=== PATIENT | male | born 1950 | race Caucasian/White ===

== ENCOUNTER 2021-04-24 11:53 | Inpatient (IN) ==
--- NOTE | 2021-04-24 11:45 | Emergency Department Note ---
Impression & Plan STEMI (ST elevation myocardial infarction), HTN (hypertension), Diabetes type 2, controlled ED Provider Note Provider: Luis Dooley MD DATE OF SERVICE: 04/24/2021 CHIEF COMPLAINT: Chest pain, shortness of breath HISTORY OF PRESENT ILLNESS: Patient is a 70-year-old gentleman history of hyp ertension and type 2 diabetes presenting here today via ambulance from the [facility]. Patient was evidently seen there today reporting some indigestion and shoulder pain or shortness of breath for 3 days. Evidently symptoms have been intermittently since Thursday. Tried some Tylenol without improvement. Denies any fevers or chills or vomiting or diarrhea. Patient has noted some dyspnea with exertion. Denies any history of cardiac disease but does have a history of diabetes again. Patient was [facility] at [facility] and referred here with significant EKG findings. Made a heart alert prior to arrival. Patient did receive 1 nitroglycerin and 324mg of aspirin prior to arrival. Patient denies significant chest discomfort at this time upon arrival. Cardiac history and father reported. REVIEW OF SYSTEMS: A total of 10 review of systems was obtained and negative except as stated above in the HPI. PAST MEDICAL HISTORY: As noted above MEDICATIONS: Reviewed home medications includes insulin SOCIAL HISTORY: Non-smoker, lives at home PHYSICAL EXAM: GENERAL: alert and oriented in no acute distress on stretcher Head: normocephalic and atraumatic EYES: No injection, discharge or icterus. NECK: Trachea midline. ENT: Mucous membranes pink and moist. LUNGS: Airway patent. No retractions. Breath sounds clear with good air entry bilaterally. HEART: Regular rate and rhythm. No chest wall tenderness ABDOMEN: Soft and non-tender, without guarding or rebound SKIN: Acyanotic, warm, dry, without rashes EXTREMITIES: Without swelling, tenderness or deformity NEUROLOGICAL: No focal deficits. No aphasia. No facial droop or slurred speech. EK bpm sinus tachycardia with acute ST segment elevations V2 through V5 with some question of anterior V1 and V2 Q waves. No significant reciprocal depressions are noted. Compared to previous EKG from the [facility] system from July of this year these ST segment elevations on the anterior leads appears new. CONTINUOUS CARDIAC MONITORING: was ordered and showed a heart rate of 90s-100s bpm in normal sinus rhythm to sinus tachycardia Patient's laboratory studies and imaging reviewed. Differential includes Cardiac ischemia, aortic dissection, pulmonary embolism, pneumothorax, pneumonia, pericarditis, myocarditis, esophageal rupture, GERD, cholecystitis, pancreatitis, musculoskeletal, as well as other pathologies. IMPRESSION/MEDICAL DECISION MAKING: Alerted prior to arrival by EMS for concerning EKG. Patient's medical records in the [facility] system were utilized for comparison purposes. Patient with significant V2 through V5 ST segment elevation although there are not significant reciprocal depressions noted. Heart alert was called. Patient previously received 324mg of aspirin prior to arrival. Patient does have multiple cardiac risk factors. Basic labs and Covid testing were ordered. See ms unlikely to be acute aortic dissection. Given EKG changes and the patient's pain resolved question if we are a bit late and catching a STEMI. 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 Patient's troponin does later returned significantly elevated but again I question that he had his initial NH event over the last several days. Covid screen was negative and is not severely anemic at this time. Will defer any further antiplatelet or heparinization to the the cardiology team. DIAGNOSIS: STEMI, chest pain DISPOSITION: Taken to the cardiac catheterization lab for further care Critical Care I have personally spent 31 minutes of critical care time in the direct management of this patient. This includes bedside care, interpretation of diagnostic studies, and testing, discussion with consultants/EMS, patient, and other required patient management activities. These 31 minutes is in excess of all separately billable procedures. Past Med/Surg History Social History Smoking Status: Former smoker Smoking End Date: 40 years ago; Second Hand Exposure: No; Do You Dip or Chew Tobacco: No; Tobacco Cessation Education Requested by Patient: No Hx Alcohol Use: No Hx Substance Use: No Preferred Language: Ghanaian Communication Ability: Effective Proof Carrier Required: No Beliefs That Will Affect Care: None Current Living Situation: Spouse Other Information That Helps Us Care for You: No Feels Safe at Home: Yes Safety Concerns: Feels Safe At This Time Assistive Devices: None Allergies Allergies Allergy/AdvReac Type Severity Reaction Status Date / Time No Known Allergies Allergy Verified 04/24/21 12:55 Home Meds Home Medications Medication Instructions Recorded Confirmed glipizide 10 mg tablet 10 mg PO BID 04/24/21 04/24/21 hydrochlorothiazide 12.5 mg capsule 12.5 mg PO DAILY 04/24/21 04/24/21 insulin degludec 100 unit/mL (3 See Rx Instructions .ROUTE .COMPLEX 04/24/21 04/24/21 mL) subcutaneous pen (Tresiba FlexTouch U-100 insulin) losartan 100 mg tablet 100 mg PO DAILY 04/24/21 04/24/21 metformin 500 mg tablet 500 mg PO BID 04/24/21 04/24/21 simvastatin 40 mg tablet 40 mg PO HS 04/24/21 04/24/21 Results & Data (ED) Vital Signs Vital Signs - 24 hr 04/24/21 11:53 04/24/21 11:56 04/24/21 12:00 Temperature 36.6 C Temperature Source Oral Pulse Rate 141 H 52 L 189 H Pulse Rate from SpO2 Sensor 106 H 101 H Respiratory Rate 26 H 24 22 Blood Pressure 167/102 H Blood Pressure Mean 123 Blood Pressure Position Lying Pulse Oximetry 98 96 98 Oxygen Delivery Method Room Air Room Air Room Air Sepsis Recent Fever Within 48 Hours No Sepsis New/Unexplained Change in Mental Status No Sepsis Action Taken by Nursing Physician Notified Laboratory Data Result diagrams: 04/24/21 12:22 04/24/21 12:22 Lab Results 04/24/21 04/24/21 04/24/21 Range/Units 12:00 12:00 12:22 WBC 10.13 (4.8-10.8) K/uL RBC 4.42 L (4.7-6.1) M/uL Hgb 12.2 L (14.0-18.0) g/dL Hct 37.7 L (42-52) % MCV 85.3 (80-100) fL MCH 27.6 (25-34) pg MCHC 32.4 (32-36) g/dL RDW Std Deviation 41.7 (36.4-46.3) fL RDW Coeff of Frankie 13.4 (11.5-14.5) % Plt Count 169 (130-400) K/uL MPV 11.7 H (7.4-10.4) fL Immature Gran % (Auto) 0.2 % Neut % (Auto) 79.0 % Lymph % (Auto) 10.9 % [place] % (Auto) 9.3 % Eos % (Auto) 0.5 % Baso % (Auto) 0.1 % Neut # (Auto) 8.01 H (1.4-6.5) K/uL Lymph # (Auto) 1.10 L (1.2-3.4) K/uL [place] # (Auto) 0.94 H (0.11-0.59) K/uL Eos # (Auto) 0.05 (0-0.5) K/uL Baso # (Auto) 0.01 (0-0.2) K/uL Immature Gran # (Auto) 0.02 (0.00-0.02) K/uL PT (9.0-12.0) Seconds INR (0.9-1.1) APTT (21.0-31.0) Seconds PTT Ratio Sodium (136-145) mmol/L Potassium (3.5-5.1) mmol/L Chloride (98-107) mmol/L Carbon Dioxide (21-32) mmol/L Anion Gap (3-11) BUN (7-18) mg/dl Creatinine (0.6-1.4) mg/dl Est Cr Clr Drug Dosing ml/min Est GFR ( Amer) ml/min Est GFR (Non-Af Amer) ml/min BUN/Creatinine Ratio (10-20) Glucose (70-99) mg/dl Calcium (8.5-10.1) mg/dl Magnesium (1.8-2.4) mg/dl Total Bilirubin (0.2-1) mg/dl AST (15-37) U/L ALT (12-78) U/L Alkaline Phosphatase (45-117) U/L Total Creatine Kinase (39-308) U/L CK-MB (CK-2) (0.5-3.6) ng/ml CK/CKMB % Calc (0-3.0) Troponin I (0-0.045) ng/ml Total Protein (6.4-8.2) gm/dl Albumin (3.4-5.0) gm/dl Globulin (2.5-4.0) gm/dl Albumin/Globulin Ratio (0.9-2) Lipase (73-393) U/L TSH (0.300-4.500) uIu/ml COVID-19 Eval [facility] SARS-CoV-2, RNA, NAAT NEGATIVE (NEGATIVE) 04/24/21 04/24/21 Range/Units 12:22 12:22 WBC (4.8-10.8) K/uL RBC (4.7-6.1) M/uL Hgb (14.0-18.0) g/dL Hct (42-52) % MCV (80-100) fL MCH (25-34) pg MCHC (32-36) g/dL RDW Std Deviation (36.4-46.3) fL RDW Coeff of Frankie (11.5-14.5) % Plt Count (130-400) K/uL MPV (7.4-10.4) fL Immature Gran % (Auto) % Neut % (Auto) % Lymph % (Auto) % [place] % (Auto) % Eos % (Auto) % Baso % (Auto) % Neut # (Auto) (1.4-6.5) K/uL Lymph # (Auto) (1.2-3.4) K/uL [place] # (Auto) (0.11-0.59) K/uL Eos # (Auto) (0-0.5) K/uL Baso # (Auto) (0-0.2) K/uL Immature Gran # (Auto) (0.00-0.02) K/uL PT 10.1 (9.0-12.0) Seconds INR 1.0 (0.9-1.1) APTT 26.7 (21.0-31.0) Seconds PTT Ratio 1.0 Sodium 132 L (136-145) mmol/L Potassium 4.1 (3.5-5.1) mmol/L Chloride 101 (98-107) mmol/L Carbon Dioxide 27 (21-32) mmol/L Anion Gap 4.0 (3-11) BUN 32 H (7-18) mg/dl Creatinine 1.43 H (0.6-1.4) mg/dl Est Cr Clr Drug Dosing 60.5 ml/min Est GFR ( Amer) 57.9 ml/min Est GFR (Non-Af Amer) 50.0 ml/min BUN/Creatinine Ratio 22.0 H (10-20) Glucose 233 H (70-99) mg/dl Calcium 9.2 (8.5-10.1) mg/dl Magnesium 2.3 (1.8-2.4) mg/dl Total Bilirubin 0.6 (0.2-1) mg/dl AST 181 H (15-37) U/L ALT 42 (12-78) U/L Alkaline Phosphatase 99 (45-117) U/L Total Creatine Kinase 1193 H (39-308) U/L CK-MB (CK-2) 90.7 H (0.5-3.6) ng/ml CK/CKMB % Calc 7.6 H (0-3.0) Troponin I 24.700 H* (0-0.045) ng/ml Total Protein 7.5 (6.4-8.2) gm/dl Albumin 3.4 (3.4-5.0) gm/dl Globulin 4.1 H (2.5-4.0) gm/dl Albumin/Globulin Ratio 0.8 L (0.9-2) Lipase 208 (73-393) U/L TSH 1.260 (0.300-4.500) uIu/ml COVID-19 Eval Order SARS-CoV-2, RNA, NAAT (NEGATIVE) Administered Medications Atorvastatin Calcium (Atorvastatin 40 Mg Tab) 80 mg PO QAM [facility] Stop: 05/24/21 16:29 Last Admin: 04/24/21 17:17 Dose: 80 mg Documented by: [id number] Heparin Sodium/Dextrose (Heparin Sodium/Dextrose) 25,000 units in 500 mls @ 30 mls/hr IV .[id number] [facility]; Protocol Stop: 05/24/21 16:44 Last Admin: 04/24/21 17:17 Dose: 1,500 units/hr, 30 mls/hr Documented by: [id number] Cosigned by: [id number] Metoprolol Tartrate (Metoprolol Tartrate 25 Mg Tab) 12.5 mg PO Q6 [facility] Stop: 05/24/21 17:59 Last Admin: 04/24/21 17:17 Dose: 12.5 mg Documented by: [id number] Discontinued Medications Fentanyl Citrate (Fentanyl Citrate 100 Mcg/2 Ml Vial) Confirm Administered Dose 100 mcg .ROUTE .STK-MED ONE Stop: 04/24/21 11:42 Last Increment: 04/24/21 13:08 Dose: 50 mcg Documented by: [id number] Heparin Sodium (Porcine) (Heparin (Porcine) 1000 Unit/Ml 10 Ml (Rotary Furnace Operator Use Only)) Confirm Administered Dose 10,000 units .ROUTE .STK-MED ONE Stop: 04/24/21 11:42 Last Admin: 04/24/21 13:08 Dose: 2,000 units Documented by: [id number] Heparin Sodium (Porcine) (Heparin (Porcine) 1000 Unit/Ml 10 Ml (Rotary Furnace Operator Use Only)) Confirm Administered Dose 10,000 units .ROUTE .STK-MED ONE Stop: 04/24/21 12:19 Last Admin: 04/24/21 13:08 Dose: 10,000 units Documented by: [id number] Heparin Sodium/Dextrose (Heparin 87917 Unit/500 Ml D5w) Confirm Administered Dose 25,000 units IV .STK-MED ONE Stop: 04/24/21 12:28 Last Admin: 04/24/21 13:09 Dose: 1,550 units Documented by: [id number] Cosigned by: [id number] Heparin Sodium/Dextrose (Heparin Iv Adult Wt-Based Standard *No* Bolus Protocol) 1 ea IV Q15M [facility]; Protocol Stop: 05/24/21 16:29 Last Admin: 04/24/21 16:52 Dose: Not Given Documented by: [id number] Heparin Sodium/Sodium Chloride (Heparin In Nss Infusion 1000 Unit/500 Ml (2 U/Ml ) Bag) Confirm Administered Dose 3,000 units IV .STK-MED ONE Stop: 04/24/21 11:42 Last Admin: 04/24/21 14:38 Dose: Not Given Documented by: [id number] Insulin Aspart (Insulin Aspart 100 Units/Ml 3 Ml Pen) 0 units SC NOW STA Stop: 04/24/21 16:42 Last Admin: 04/24/21 17:18 Dose: 8 units Documented by: [id number] Cosigned by: [id number] Midazolam HCl (Midazolam Hcl 1 Mg/Ml 2ml Vial) Confirm Administered Dose 2 mg .ROUTE .STK-MED ONE Stop: 04/24/21 11:42 Last Increment: 04/24/21 13:07 Dose: 1 mg Documented by: [id number] Nicardipine HCl (Nicardipine Hcl Inj 2.5 Mg/Ml 10 Ml Amp) Confirm Administered Dose 25 mg .ROUTE .STK-MED ONE Stop: 04/24/21 11:42 Last Admin: 04/24/21 14:38 Dose: Not Given Documented by: [id number] Nitroglycerin/Dextrose (Nitroglycerin/D5w 100mcg/Ml 20ml Syr) Confirm Administered Dose 2,000 mcg .ROUTE .STK-MED ONE Stop: 04/24/21 11:42 Last Admin: 04/24/21 14:38 Dose: Not Given Documented by: [id number] Discharge Plan Visit Data Chief Complaint: Chest Pain Stated Complaint: Chest Pain ED Provider: Luis Dooley Discharge Problem: STEMI (ST elevation myocardial infarction), HTN (hypertension), Diabetes type 2, controlled Patient Disposition: Admitted As Inpatient Discharge Instructions Interventions: ED Discharge Assessment Last Done: 04/24/21 12:06
[~2021-04-24 11:53] MED LIST: HEPARIN (PORCINE) 1000 UNIT/ML 10 ML (CATH LAB USE ONLY) ONE; HEPARIN SOD (PORCINE) 1000 UNIT/ML ONE; MIDAZOLAM HCL 1 MG/ML 2ML VIAL ONE; NITROGLYCERIN/D5W 100MCG/ML 20ML SYR ONE; TICAGRELOR 90 MG TAB PO ONE; fentaNYL citrate 100 MCG/2 ML VIAL ONE; niCARdipine HCL INJ 2.5 MG/ML 10 ML AMP ONE
[2021-04-24] MEDS ORDERED: HEPARIN (PORCINE) 1000 UNIT/ML 10 ML (CATH LAB USE ONLY) ONE (12:18)
[2021-04-24] MEDS ORDERED: HEPARIN 25000 UNIT/500 ML D5W IV ONE (12:27)
[2021-04-24 12:38] LABS: Basophils # (auto) 0.01 K/uL (0-0.2); Basophils % (auto) 0.1 %; Eosinophils # (auto) 0.05 K/uL (0-0.5); Eosinophils % (auto) 0.5 %; Hematocrit (blood only) 37.7 % (42-52); Hemoglobin 12.2 g/dL (14.0-18.0); Immature Granulocytes # (auto) 0.02 K/uL (0.00-0.02); Immature Granulocytes % (auto) 0.2 %; Lymphocytes % (auto) 10.9 %; Mean Corpuscular Hemoglobin 27.6 pg (25-34); Mean Corpuscular Hgb Conc 32.4 g/dL (32-36); Mean Corpuscular Volume 85.3 fL (80-100); Mean Platelet Volume 11.7 fL (7.4-10.4); Monocytes # (auto) 0.94 K/uL (0.11-0.59); Monocytes % (auto) 9.3 %; Neutrophils # (auto) 8.01 K/uL (1.4-6.5); Platelet Count 169 K/uL (130-400); RDW Coefficient of Variation 13.4 % (11.5-14.5); RDW Standard Deviation 41.7 fL (36.4-46.3); Red Blood Count 4.42 M/uL (4.7-6.1); White Blood Count 10.13 K/uL (4.8-10.8)
[2021-04-24 12:43] LABS: Partial Thromboplastin Time 26.7 Seconds (21.0-31.0); Prothrombin Time 10.1 Seconds (9.0-12.0)
--- NOTE | 2021-04-24 12:48 | Cardiac Catheterization ---
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 Any exceptions are noted below. 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 CAD Presenation: STEMI Anginal Classification: CCS IV Heart Failure: No Cardiogenic Shock within 24 Hours: No Cardiac Arrest within 24 Hours: No Imaging Studies Past 6 Months: No Stress Studies Past 6 Months: No Standard Exercise Test: No Stress Echocardiogram: No Stress Testing w/SPECT MPI: No Cardiac CTA: No STEMI OR Non-STEMI Symptom Onset Date: 04/22/21 Thrombolytics: No Coronary Anatomy Dominant: Right Left Main (% Stenosis): Normal LAD (% Stenosis): Mid (80) D1 (% Stenosis): Mid (70) Circumflex (% Stenosis): Normal OM1 (% Stenosis): Mid (80) RCA (% Stenosis): Mid (100) Diagnostic Physicians Name: Gisel Conte MD Closure Device Closure Device: Radial Band Recommendations: CABG
[2021-04-24 12:54] LABS: Albumin Level 3.4 gm/dl (3.4-5.0); Calcium 9.2 mg/dl (8.5-10.1); Creatinine Clr Calc Pharmacy 60.5 ml/min; Est GFR (African American) 57.9 ml/min; Magnesium 2.3 mg/dl (1.8-2.4); Potassium 4.1 mmol/L (3.5-5.1)
--- NOTE | 2021-04-24 12:58 | History & Physical Report ---
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 History of Present Illness Chief Complaint: CP/ant STEMI Primary Care Provider: Delmis Oakes MD 2 day hsitory of cp, now presenting with ant STEMI now chest pain free Allergies Allergy/AdvReac Type Severity Reaction Status Date / Time No Known Allergies Allergy Verified 04/24/21 12:55 Past Med/Surg History Social History Smoking Status: Unknown if ever smoked Feels Safe at Home: Yes Review of Systems Unremarkable Physical Exam Constitutional: WD/WN, vitals as above Respiratory: normal respiratory effort, lungs clear to auscultation normal respiratory effort Auscultation: lungs clear to auscultation bilaterally Cardiovascular: RRR, no murmur, no edema Results & Data ([facility]) Vital Signs (Past 12 Hours) Vital Signs Temp Pulse Resp BP Pulse Ox 04/24/21 12:00 189 H 22 98 04/24/21 11:56 52 L 24 96 04/24/21 11:53 36.6 C 141 H 26 H 167/102 H 98 Diagnostic Findings Ant STEMI Code Status & VTE Plan Code Status Full
[2021-04-24 13:19] LABS: Albumin Globulin Ratio 0.8 (0.9-2); Bilirubin,Total 0.6 mg/dl (0.2-1); Creatine Kinase MB 90.7 ng/ml (0.5-3.6); Globulin 4.1 gm/dl (2.5-4.0); Thyroid Stimulating Hormone 1.26 uIu/ml (0.300-4.500); Total Protein 7.5 gm/dl (6.4-8.2); Troponin I 24.7 ng/ml (0-0.045)
--- NOTE | 2021-04-24 14:51 | Critical Care Consultation ---
Date of Consultation April 24, 2021 Assessment & Plan (1) STEMI (ST elevation myocardial infarction): Awaiting transfer to [facility] for probable triple-vessel CABG. -Chest pain-free -Nitrates in event of chest pain -Anticipate urgent transfer (2) HTN (hypertension): Blood pressure controlled at this time (3) Diabetes type 2, controlled: Blood sugars within tolerances History of Present Illness Reason for Consultation: Triple-vessel disease requiring CABG Attending Physician: Gisel Conte MD History of Present Illness Patient is a 70-year-old gentleman with a past medical history of hypertension and type 2 diabetes who presented from an ambulance from [facility] with EKG changes concerning for cardiac ischemia. Patient was seen in the emergency department and taken for an emergent cardiac cath. Findings demonstrated need for CABG versus advanced PCI in the patient's chest pain had resolved and is stable awaiting bed placement and [facility]. Allergies Allergy/AdvReac Type Severity Reaction Status Date / Time No Known Allergies Allergy Verified 04/24/21 12:55 Patient History Social History Smoking Status: Unknown if ever smoked Feels Safe at Home: Yes Review of Systems Cardiovascular: Additional Comments: No chest pain, no shortness of breath no dizziness no lightheadedness Physical Exam Physical Exam: General: Alert. nontoxic. Skin: Warm, dry, Head: Atraumatic Ears, nose, mouth and throat: airway patent Cardiovascular: Normal peripheral perfusion Respiratory: no respiratory distress Gastrointestinal: Non distended Musculoskeletal: No deformity, TR band present on right wrist Results & Data Results & Data ([facility]) Vital Signs (Past 12 Hours) Vital Signs Temp Pulse Pulse Resp BP BP Pulse Ox 04/24/21 14:30 90 21 98 04/24/21 14:22 36.6 C 90 16 131/73 98 04/24/21 14:00 95 H 18 114/80 97 04/24/21 13:45 92 H 18 141/88 H 97 04/24/21 13:30 88 18 125/79 96 04/24/21 13:15 86 18 115/66 96 04/24/21 13:00 89 18 104/74 96 04/24/21 12:45 91 H 18 123/81 96 04/24/21 12:00 189 H 22 98 04/24/21 11:56 52 L 24 96 04/24/21 11:53 36.6 C 141 H 26 H 167/102 H 98 Laboratory Results 04/24/21 04/24/21 04/24/21 Range/Units 12:22 12:22 12:22 WBC 10.13 (4.8-10.8) K/uL RBC 4.42 L (4.7-6.1) M/uL Hgb 12.2 L (14.0-18.0) g/dL Hct 37.7 L (42-52) % MCV 85.3 (80-100) fL MCH 27.6 (25-34) pg MCHC 32.4 (32-36) g/dL RDW Std Deviation 41.7 (36.4-46.3) fL RDW Coeff of Frankie 13.4 (11.5-14.5) % Plt Count 169 (130-400) K/uL MPV 11.7 H (7.4-10.4) fL Immature Gran % (Auto) 0.2 % Neut % (Auto) 79.0 % Lymph % (Auto) 10.9 % [place] % (Auto) 9.3 % Eos % (Auto) 0.5 % Baso % (Auto) 0.1 % Neut # (Auto) 8.01 H (1.4-6.5) K/uL Lymph # (Auto) 1.10 L (1.2-3.4) K/uL [place] # (Auto) 0.94 H (0.11-0.59) K/uL Eos # (Auto) 0.05 (0-0.5) K/uL Baso # (Auto) 0.01 (0-0.2) K/uL Immature Gran # (Auto) 0.02 (0.00-0.02) K/uL PT 10.1 (9.0-12.0) Seconds INR 1.0 (0.9-1.1) APTT 26.7 (21.0-31.0) Seconds PTT Ratio 1.0 Sodium 132 L (136-145) mmol/L Potassium 4.1 (3.5-5.1) mmol/L Chloride 101 (98-107) mmol/L Carbon Dioxide 27 (21-32) mmol/L Anion Gap 4.0 (3-11) BUN 32 H (7-18) mg/dl Creatinine 1.43 H (0.6-1.4) mg/dl Est Cr Clr Drug Dosing 60.5 ml/min Est GFR ( Amer) 57.9 ml/min Est GFR (Non-Af Amer) 50.0 ml/min BUN/Creatinine Ratio 22.0 H (10-20) Glucose 233 H (70-99) mg/dl Calcium 9.2 (8.5-10.1) mg/dl Magnesium 2.3 (1.8-2.4) mg/dl Total Bilirubin 0.6 (0.2-1) mg/dl AST 181 H (15-37) U/L ALT 42 (12-78) U/L Alkaline Phosphatase 99 (45-117) U/L Total Creatine Kinase 1193 H (39-308) U/L CK-MB (CK-2) 90.7 H (0.5-3.6) ng/ml CK/CKMB % Calc 7.6 H (0-3.0) Troponin I 24.700 H* (0-0.045) ng/ml Total Protein 7.5 (6.4-8.2) gm/dl Albumin 3.4 (3.4-5.0) gm/dl Globulin 4.1 H (2.5-4.0) gm/dl Albumin/Globulin Ratio 0.8 L (0.9-2) Lipase 208 (73-393) U/L TSH 1.260 (0.300-4.500) uIu/ml COVID-19 Eval Order SARS-CoV-2, RNA, NAAT (NEGATIVE) 04/24/21 04/24/21 Range/Units 12:00 12:00 WBC (4.8-10.8) K/uL RBC (4.7-6.1) M/uL Hgb (14.0-18.0) g/dL Hct (42-52) % MCV (80-100) fL MCH (25-34) pg MCHC (32-36) g/dL RDW Std Deviation (36.4-46.3) fL RDW Coeff of Frankie (11.5-14.5) % Plt Count (130-400) K/uL MPV (7.4-10.4) fL Immature Gran % (Auto) % Neut % (Auto) % Lymph % (Auto) % [place] % (Auto) % Eos % (Auto) % Baso % (Auto) % Neut # (Auto) (1.4-6.5) K/uL Lymph # (Auto) (1.2-3.4) K/uL [place] # (Auto) (0.11-0.59) K/uL Eos # (Auto) (0-0.5) K/uL Baso # (Auto) (0-0.2) K/uL Immature Gran # (Auto) (0.00-0.02) K/uL PT (9.0-12.0) Seconds INR (0.9-1.1) APTT (21.0-31.0) Seconds PTT Ratio Sodium (136-145) mmol/L Potassium (3.5-5.1) mmol/L Chloride (98-107) mmol/L Carbon Dioxide (21-32) mmol/L Anion Gap (3-11) BUN (7-18) mg/dl Creatinine (0.6-1.4) mg/dl Est Cr Clr Drug Dosing ml/min Est GFR ( Amer) ml/min Est GFR (Non-Af Amer) ml/min BUN/Creatinine Ratio (10-20) Glucose (70-99) mg/dl Calcium (8.5-10.1) mg/dl Magnesium (1.8-2.4) mg/dl Total Bilirubin (0.2-1) mg/dl AST (15-37) U/L ALT (12-78) U/L Alkaline Phosphatase (45-117) U/L Total Creatine Kinase (39-308) U/L CK-MB (CK-2) (0.5-3.6) ng/ml CK/CKMB % Calc (0-3.0) Troponin I (0-0.045) ng/ml Total Protein (6.4-8.2) gm/dl Albumin (3.4-5.0) gm/dl Globulin (2.5-4.0) gm/dl Albumin/Globulin Ratio (0.9-2) Lipase (73-393) U/L TSH (0.300-4.500) uIu/ml COVID-19 Eval [facility] SARS-CoV-2, RNA, NAAT NEGATIVE (NEGATIVE) Coding Level of Care Code 57801 Inpt Consult Level 4 Diagnoses STEMI (ST elevation myocardial infarction) I21.3 HTN (hypertension) I10 Diabetes type 2, controlled E11.9
--- NOTE | 2021-04-24 16:19 | Cardiology Consultation ---
Date of Consultation April 24, 2021 Assessment & Plan (1) STEMI (ST elevation myocardial infarction): (2) HTN (hypertension): (3) Diabetes type 2, controlled: The patient is a 70-year-old male with no previous cardiac history who presented via EMS from [facility] care with anterior ST segment elevation DC. cardiac catheterization revealed multivessel disease includin% mid LAD, 70% mid 1st diagonal, 80% mid OM1 and 100% mid RCA. Regional wall motion abnormalities noted anteriorly and inferiorly on her limited artery cine image review. His initial event is likely over 48 hours ago. He is currently symptom free. He is to be transported to [facility] in [place] for CABG evaluation. Will perform a 2D echocardiogram is here if time allows but obviously would not delay transfer. in the meantime, he will be placed on a heparin drip along with high-dose statins and metoprolol tartrate 12.5 mg p.o. q.6 hours it will be up titrated as necessary. He will remain our intensive care unit until a bed is available for transport. History of Present Illness Reason for Consultation: Heart alert Requesting Physician: ER Attending Physician: Jacky Bhandari, DO History of Present Illness It was my pleasure to see Mr. Hanley in cardiac consultation today April 24, 2021. He is a very pleasant 70-year-old gentleman who is directed to [facility] Emergency Department be a EMS from the [place] in the care clinic for an ST segment elevation myocardial infarction. He presented with complaints of indigestion, left shoulder pain and shortness of breath x3 days. He states he 1st noticed the symptoms when he woke up Thursday morning in the seem to wax and wane until today. This morning he became nauseous and went to [facility]. At that point he was only able to take about 10 steps before having to stop and catch his breath and he noticed worsening left shoulder pain with this. An EKG was performed there which showed an anterior ST segment elevation DC and he was transported via EMS to [facility]. 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 He was accepted to transfer and [facility] in [place], unfortunately, no beds are currently available so he will be watched here till 1 is. Currently he is symptom free at rest. Allergies Allergy/AdvReac Type Severity Reaction Status Date / Time No Known Allergies Allergy Verified 04/24/21 12:55 Home Medications Medication Instructions Recorded Confirmed Type glipizide 10 mg tablet 10 mg PO BID 04/24/21 04/24/21 History hydrochlorothiazide 12.5 mg capsule 12.5 mg PO DAILY 04/24/21 04/24/21 History insulin degludec 100 unit/mL (3 See Rx Instructions .ROUTE .COMPLEX 04/24/21 04/24/21 History mL) subcutaneous pen (Tresiba FlexTouch U-100 insulin) losartan 100 mg tablet 100 mg PO DAILY 04/24/21 04/24/21 History metformin 500 mg tablet 500 mg PO BID 04/24/21 04/24/21 History simvastatin 40 mg tablet 40 mg PO HS 04/24/21 04/24/21 History Patient History Social History Smoking Status: Former smoker Smoking End Date: 40 years ago; Second Hand Exposure: No; Do You Dip or Chew Tobacco: No; Tobacco Cessation Education Requested by Patient: No Hx Alcohol Use: No Hx Substance Use: No Preferred Language: Korean Communication Ability: Effective City Letter Carrier Required: No Beliefs That Will Affect Care: None Current Living Situation: Spouse Other Information That Helps Us Care for You: No Feels Safe at Home: Yes Safety Concerns: Feels Safe At This Time Assistive Devices: None Review of Systems Review of Systems: All systems reviewed & are unremarkable except as noted in HPI & below Physical Exam Physical Exam: General: Awake, alert and oriented x 3. No acute distress. HEENT: Normocephalic, atraumatic. Pupils equal, round and reactive to light and accommodation. Extraocular muscles are intact. Anicteric sclera. Moist mucous membranes. Neck: No JVD. No bruit. Cardiovascular: Regular. Positive S-4. Normal S-1 and S-2. No S-3. No murmurs or rubs. Pulmonary: Clear to auscultation B/L. No rales, rhonchi or wheezing Abdomen: Bowel sounds x 4, soft. No rebound, guarding or tenderness. No organomegaly. Extremities: No clubbing, cyanosis or edema. +2 pedal pulses bilaterally. Skin: Warm and dry. Results & Data ([facility]) Vital Signs (Past 12 Hours) Vital Signs Temp Pulse Pulse Resp BP BP Pulse Ox 04/24/21 16:00 96 H 20 142/79 H 97 04/24/21 15:47 93 H 21 167/47 H 96 04/24/21 15:17 94 H 23 142/81 H 97 04/24/21 15:02 97 H 23 128/101 H 98 04/24/21 14:50 90 16 97 04/24/21 14:49 92 H 27 H 98 04/24/21 14:48 93 H 16 97 04/24/21 14:36 89 22 128/76 97 04/24/21 14:30 90 21 98 04/24/21 14:22 36.6 C 90 16 131/73 98 04/24/21 14:00 95 H 18 114/80 97 04/24/21 13:45 92 H 18 141/88 H 97 04/24/21 13:30 88 18 125/79 96 04/24/21 13:15 86 18 115/66 96 04/24/21 13:00 89 18 104/74 96 04/24/21 12:45 91 H 18 123/81 96 04/24/21 12:00 189 H 22 98 04/24/21 11:56 52 L 24 96 04/24/21 11:53 36.6 C 141 H 26 H 167/102 H 98
[2021-04-24] MEDS ORDERED: PHARMACY GLYCEMIC MGMT CONSULT PRN (16:26)
[2021-04-24] MEDS ORDERED: Heparin IV Adult Wt-Based Standard *NO* Bolus Protocol IV SCH (16:30)
[2021-04-24] MEDS ORDERED: INSULIN ASPART 100 UNITS/ML 3 ML PEN SC STA (16:41)
[2021-04-24] MEDS ORDERED: Nursing to Pharmacy Communication SCH (16:45)
--- NOTE | 2021-04-24 16:52 | Pharmacy Report ---
Pharmacy Glycemic Short Note 2 - Date of Service April 24, 2021 - Glycemic Short BSG Results (Last 24 hours): 04/24/21 04/24/21 12:22 16:15 Glucose 233 H POC Glucose 164 H OUTPATIENT ANTIDIABETIC REGIMEN: * Glipizide * Metformin * Tresiba * A1c = ? ASSESSMENT: * Type 2 diabetic admitted for STEMI, however will likely be transferred urgently for possible CABG vs advanced PCI * Glycemic control prior to admission uncertain, patient uncertain of home medication doses. Of note, pt did take PO meds this AM * Will begin weight-based basal/bolus insulin doses. Basal dose will be based upon weight and "mild-moderate" stress level given possibility of CORTNEY and recent sulfonylurea use. Bolus doses will be based upon "moderate" stress level and weight PLAN FOR INPATIENT GLYCEMIC CONTROL: * Hold outpatient oral diabetes medications * Basal insulin * Lantus 15 units SQ BID * Bolus insulin * NovoLog per scale ACHS or Q6hrs while NPO * Goal Range: Low 110 mg/dL - High 140 mg/dL * Correction Factor: 20 mg/dL/unit * Nutritional / Prandial insulin per carb ratio of 1 unit per 7 grams CHO consumed PLAN FOR DISCHARGE: * to be determined
[2021-04-24] MEDS: ATORVASTATIN 40 MG TAB PO SCH (17:17)
[2021-04-24] MEDS: METOPROLOL TARTRATE 25 MG TAB PO SCH ×2 (17:17→23:10)
[2021-04-24] MEDS: HEPARIN SODIUM/DEXTROSE 25,000 UNITS/500 ML BAG IV SCH (17:17)
[2021-04-24 19:32] LABS: Partial Thromboplastin Ratio 1.8
[2021-04-24 19:33] LABS: Partial Thromboplastin Time 46.2 Seconds (21.0-31.0)
[2021-04-24] MEDS: INSULIN ASPART 100 UNITS/ML 3 ML PEN SC SCH (20:33)
[2021-04-24] MEDS: INSULIN GLARGINE SOLOSTAR 100 UNITS/ML 3 ML PEN SC SCH (20:49)
[2021-04-24] MEDS ORDERED: ACETAMINOPHEN 500 MG TAB PO PRN (23:16)
[2021-04-24] MEDS ORDERED: GLUCAGON FOR INJ 1 MG VIAL IM PRN (23:30)
[2021-04-24] MEDS ORDERED: DEXTROSE 50% 50 ML SYRINGE IV PRN (23:30)
[2021-04-24] MEDS ORDERED: GLUCOSE 10 TABS/TUBE PO PRN (23:30)
[2021-04-24] MEDS ORDERED: GLUCOSE 40% GEL 15 GM TUBE PO PRN (23:30)
[2021-04-24] MEDS ORDERED: CARBOHYDRATES FOR HYPOGLYCEMIA PO PRN (23:30)
[2021-04-25] MEDS ORDERED: INSULIN ASPART 100 UNITS/ML 3 ML PEN SC ONE (02:00)
[2021-04-25 04:54] LABS: Basophils # (auto) 0.01 K/uL (0-0.2); Basophils % (auto) 0.1 %; Eosinophils # (auto) 0.03 K/uL (0-0.5); Eosinophils % (auto) 0.4 %; Hematocrit (blood only) 33.8 % (42-52); Hemoglobin 10.8 g/dL (14.0-18.0); Immature Granulocytes # (auto) 0.01 K/uL (0.00-0.02); Immature Granulocytes % (auto) 0.1 %; Lymphocytes # (auto) 1.38 K/uL (1.2-3.4); Lymphocytes % (auto) 16.7 %; Mean Corpuscular Hemoglobin 27.4 pg (25-34); Mean Corpuscular Volume 85.8 fL (80-100); Mean Platelet Volume 11.6 fL (7.4-10.4); Monocytes # (auto) 0.96 K/uL (0.11-0.59); Monocytes % (auto) 11.6 %; Neutrophils # (auto) 5.87 K/uL (1.4-6.5); Neutrophils % (auto) 71.1 %; Platelet Count 149 K/uL (130-400); RDW Coefficient of Variation 13.6 % (11.5-14.5); RDW Standard Deviation 43.1 fL (36.4-46.3); Red Blood Count 3.94 M/uL (4.7-6.1); White Blood Count 8.26 K/uL (4.8-10.8)
[2021-04-25 05:05] LABS: Partial Thromboplastin Ratio 1.7; Partial Thromboplastin Time 44.4 Seconds (21.0-31.0)
[2021-04-25 05:33] LABS: BUN Creatinine Ratio 22.4 (10-20); Calcium 8.4 mg/dl (8.5-10.1); Creatinine Clr Calc Pharmacy 47.6 ml/min; Est GFR (African American) 43.8 ml/min; Est GFR (Non-African American) 37.8 ml/min; Magnesium 2.4 mg/dl (1.8-2.4); Potassium 4.4 mmol/L (3.5-5.1)
[2021-04-25 05:34] LABS: Phosphorus 5.4 mg/dl (2.5-4.9)
--- NOTE | 2021-04-25 05:47 | Critical Care Progress Note ---
Date of Service April 25, 2021 Assessment & Plan (1) STEMI (ST elevation myocardial infarction): Plan: Reason Critically Ill: 70-year-old man with a history of hypertension, hyperlipidemia, and T2DM who presented to [facility] with chest discomfort and shortness of breath on 04/24, was found to have acute anterior STEMI. PCI performed, which demonstrated 100% occlusion of the mid RCA alongside multivessel disease. He is currently on a heparin drip awaiting to be transferred to [facility] for CABG. He is hemodynamically stable. Neuro - no significant history, no acute needs at this time Cardiac - Anterior STEMI: Thankfully, continues to be symptom-free at this time Status post PCI on 04/24 demonstrating 80% occlusion of LAD, 70% occlusion of first diagonal, 80% occlusion OM1, and 100% occlusion of RCA Patient awaiting transfer to [facility] for CABG Await TTE Continue heparin drip Continue ASA, statin, metoprolol Nitrates as needed Respiratory - stable respiratory status. No acute needs at this time. GI - heart healthy, carb consistent diet RENAL/LYTES - Acute kidney injury Patient's baseline creatinine not known, however, since presentation yesterday, BUN and creatinine have demonstrated mild elevation (40/1.8 from 32/1.4) Suspect partially contrast induced following PCI, perhaps component of ATN in setting of anterior STEMI Can consider gentle rehydration with careful monitoring of volume status in setting of recent STEMI. - monitor intake and output ENDO -history of type 2 diabetes. Hold home medications. ICU hyperglycemia protocol, SSI. HEME - anemia noted with hemoglobin 12 on arrival, noted to lower to 11 this morning. No active signs of bleeding. We will continue to monitor. ID -no concerns for infectious etiology at this time. Monitor. INTEGUMENTARY -no concerns at this time, monitor. LINES/IV ACCESS -peripheral IVs intact. DVT PROPHYLAXIS -Heparin GTT Thank you for allowing us to be part of this patient's care. Please refer to Dr. Lynch's documentation for any further recommendations. (2) HTN (hypertension): (3) Diabetes type 2, controlled: Admission and Anticipated Discharge Date Admission Date: April 24, 2021 Supervising Physician Co-Signing Physician Notes Dr. Griffith was resident physician during care of patient. I separately evaluated patient for cazares portions of the history and the exam. I was present during the critical portion of medical decision making, and I discussed the case with the resident. I generally agree with the findings and plan. Patient remains hemodynamically stable and chest pain-free stable for downgrade to telemetry status. Subjective No acute events overnight. Patient seen at bedside this morning, not reporting any chest pain, palpitations, shortness of breath. Feeling good overall. Awaiting transfer. No other concerns at this time. Review of Systems Review of Systems: As above, denies chest pain, palpitations, shortness of breath. Physical Exam Physical Exam: General: Well-appearing 62-year-old gentleman who is lying back in his hospital bed, relaxed upon my arrival. He is in no acute distress. HEENT: NCAT. Eyes - Sclera are white, anicteric, and without injection. No JVD. Cardiac: Normal rate and regular rhythm; S1 and S2 present with no murmurs, rubs, or gallops. Pulmonary: Good respiratory effort with symmetric expansion of the chest. No use of accessory muscles. Lungs were clear to auscultation bilaterally with no crackles or wheezes. Abdominal: Normoactive bowel sounds. Abdomen was soft, nondistended, and non- tender to palpation. Extremities: Upper and lower extremities are warm and well perfused. Radial and dorsalis pedis pulses were 2+ b/l. Capillary refill assessed in UE was < 3 sec. no peripheral edema. Results & Data Results & Data ([facility]) Vital Signs (Past 12 Hours) Vital Signs Temp Pulse Resp BP Pulse Ox 04/25/21 05:00 85 19 103/52 L 96 04/25/21 04:00 37.2 C 78 17 99/65 L 94 04/25/21 03:00 82 21 94/61 L 97 04/25/21 02:00 79 13 84/60 L 95 04/25/21 01:00 82 12 81/51 L 94 04/25/21 00:00 37.4 C 89 21 88/54 L 93 04/24/21 23:00 96 H 19 105/70 92 04/24/21 22:00 98 H 21 99/52 L 94 04/24/21 21:00 102 H 24 107/53 L 94 04/24/21 20:00 37 C 101 H 20 152/95 H 96 04/24/21 19:00 95 H 24 120/71 95 04/24/21 18:00 96 H 19 122/74 96 Resident Activity Tracking Resident Involvement: Resident Care Provided Care Provided: Adult Hospital Medicine (1) STEMI (ST elevation myocardial infarction) Involved coronary artery: unspecified coronary artery Qualified Code(s): I21.3 - ST elevation (STEMI) myocardial infarction of unspecified site (2) Diabetes type 2, controlled Diabetes mellitus mcfp insulin use: with vermin exterminator use (3) HTN (hypertension) Hypertension type: unspecified Qualified Code(s): I10 - Essential (primary) hypertension
[2021-04-25] MEDS: METOPROLOL TARTRATE 25 MG TAB PO SCH ×3 (06:06→16:48)
[2021-04-25] MEDS: HEPARIN SODIUM/DEXTROSE 25,000 UNITS/500 ML BAG IV SCH ×2 (06:33→20:24)
[2021-04-25 07:50] LABS: Estimated Average Glucose 223 mg/dl; Hemoglobin A1C 9.4 % (4.5-5.6)
[2021-04-25] MEDS: INSULIN GLARGINE SOLOSTAR 100 UNITS/ML 3 ML PEN SC SCH ×2 (08:02→20:08)
[2021-04-25] MEDS: ATORVASTATIN 40 MG TAB PO SCH (08:04)
[2021-04-25] MEDS: INSULIN ASPART 100 UNITS/ML 3 ML PEN SC SCH ×4 (08:04→20:07)
--- NOTE | 2021-04-25 08:36 | Billing Data ---
Date of Service April 25, 2021 Coding Level of Care Code 47743 Subseq Obs Care Lvl 1
[2021-04-25] MEDS ORDERED: ASPIRIN 81 MG ECTAB PO SCH (09:00)
--- NOTE | 2021-04-25 10:45 | Cardiology Progress Note ---
Date of Service April 25, 2021 Assessment & Plan (1) STEMI (ST elevation myocardial infarction): (2) HTN (hypertension): (3) Diabetes type 2, controlled: Plan: The patient is a 70-year-old male with no previous cardiac history who presented via EMS from [facility] with anterior ST segment elevation [place]. cardiac catheterization revealed multivessel disease includin% mid LAD, 70% mid 1st diagonal, 80% mid OM1 and 100% mid RCA. Regional wall motion abnormalities noted anteriorly and inferiorly on her limited artery cine image review. His initial event is likely over 48 hours ago. He is currently symptom free. He is to be transported to [facility] in [place] for CABG evaluation. Will perform a 2D echocardiogram is here if time allows but obviously would not delay transfer. in the meantime, he will be placed on a heparin drip along with high-dose statins and metoprolol tartrate 12.5 mg p.o. q.6 hours it will be up titrated as necessary. He will remain our intensive care unit until a bed is available for transport. Admission and Anticipated Discharge Date Admission Date: April 24, 2021 Subjective Patient seen and examined, chart reviewed. No complaints overnight. Has remained chest pain or shortness of breath free at rest. Denies palpitations or lightheadedness. Telemetry reviewed: Normal sinus rhythm without arrhythmia or significant ventricular ectopy. Review of Systems Review of Systems: All systems reviewed & are unremarkable except as noted in HPI & below Physical Exam Physical Exam: General: Awake, alert and oriented x 3. No acute distress. HEENT: Normocephalic, atraumatic. Pupils equal, round and reactive to light and accommodation. Extraocular muscles are intact. Anicteric sclera. Moist mucous membranes. Neck: No JVD. No bruit. Cardiovascular: Regular. Positive S-4. Normal S-1 and S-2. No S-3. No murmurs or rubs. Pulmonary: Clear to auscultation B/L. No rales, rhonchi or wheezing Abdomen: Bowel sounds x 4, soft. No rebound, guarding or tenderness. No organomegaly. Extremities: No clubbing, cyanosis or edema. +2 pedal pulses bilaterally. Skin: Warm and dry. Results & Data ([facility]) Vital Signs (Past 12 Hours) Vital Signs Temp Pulse Resp BP Pulse Ox 04/25/21 08:00 88 04/25/21 06:00 83 17 118/74 94 04/25/21 05:00 85 19 103/52 L 96 04/25/21 04:00 37.2 C 78 17 99/65 L 94 04/25/21 03:00 82 21 94/61 L 97 04/25/21 02:00 79 13 84/60 L 95 04/25/21 01:00 82 12 81/51 L 94 04/25/21 00:00 37.4 C 89 21 88/54 L 93 04/24/21 23:00 96 H 19 105/70 92 (1) STEMI (ST elevation myocardial infarction) Involved coronary artery: unspecified coronary artery Qualified Code(s): I21.3 - ST elevation (STEMI) myocardial infarction of unspecified site (2) Diabetes type 2, controlled Diabetes mellitus vermin exterminator insulin use: with jail use (3) HTN (hypertension) Hypertension type: unspecified Qualified Code(s): I10 - Essential (primary) hypertension
[2021-04-25 11:36] LABS: Partial Thromboplastin Ratio 1.6; Partial Thromboplastin Time 42.7 Seconds (21.0-31.0)
--- NOTE | 2021-04-25 12:59 | Electrocardiogram Report ---
Test Reason : Blood Pressure : / mmHG Vent. Rate : 101 BPM Atrial Rate : 101 BPM P-R Int : 148 ms QRS Dur : 090 ms QT Int : 396 ms P-R-T Axes : 065 062 101 degrees QTc Int : 513 ms Poor data quality, interpretation may be adversely affected Sinus tachycardia Possible Left atrial enlargement Anterior infarct , age undetermined Lateral injury pattern ACUTE IN / STEMI Abnormal ECG No previous ECGs available Confirmed by Dorian Donovan ([id number]) on 04/25/2021 12:59:08 PM Referred By: REFERRED SELF Confirmed By:Dorian Donovan
--- NOTE | 2021-04-25 14:24 | Hospitalist Progress Note ---
Date of Service April 25, 2021 Assessment & Plan (1) STEMI (ST elevation myocardial infarction): Plan: This is patient is a 70-year-old male with no previous cardiac history who presented via EMS from [facility] with anterior ST segment elevation [place]. Underwent cardiac catheterization revealed multivessel disease includin% mid LAD, 70% mid 1st diagonal, 80% mid OM1 and 100% mid RCA Regional wall motion abnormalities noted anteriorly and inferiorly His initial event is likely over 48 hours ago and is currently symptom free Patient is awaiting transport to [facility] for CABG evaluation In the meantime, patient has been started heparin drip along with high-dose statins and metoprolol tartrate 12.5 mg p.o. q.6 hours it will be up titrated as necessary Dr. Bhandari consulted, patient to remain in ICU until a bed is available for transport (2) HTN (hypertension): Plan: Lopressor Q6H per cardiology. Home HCTZ, losartan currently held (3) Diabetes type 2, controlled: Plan: A1c 9.4 Hold home agents SSI while in-patient BSG AC HS Admitted to ICU awaiting transport Patient seen in collaboration with Dr. Stinson. Please see addendum. Admission and Anticipated Discharge Date Admission Date: April 24, 2021 Subjective Seen and examined in 111-1. Feeling well at rest. No lightheadedness, chest pain, palpitations or SOB. Awaiting transfer. No other concerns at this time. No fever, chills, headache, N/V/D or dysuria. Review of Systems Review of Systems: At least ten systems reviewed and negative except as noted in the HPI. Physical Exam Physical Exam: Gen: WD/WN, NAD, resting comfortably, obese, A&Ox3 HEENT: Normocephalic, atraumatic, conjunctivae moist, sclerae anicteric, mucous membranes moist Lung: Clear to Auscultation bilaterally, no wheezes/rales/rhonchi Heart: Regular rate, regular rhythm, no murmurs, rubs, or gallops Abdomen: Soft, NT, ND +BS x 4 Extremities: no edema Skin: Warm, no rash Results & Data Results & Data ([facility]) Vital Signs (Past 12 Hours) Vital Signs Temp Pulse Resp BP Pulse Ox 04/25/21 08:00 88 04/25/21 06:00 83 17 118/74 94 04/25/21 05:00 85 19 103/52 L 96 04/25/21 04:00 37.2 C 78 17 99/65 L 94 04/25/21 03:00 82 21 94/61 L 97 Laboratory Results Short CBC 04/25/21 Range/Units 04:37 WBC 8.26 (4.8-10.8) K/uL Hgb 10.8 L (14.0-18.0) g/dL Hct 33.8 L (42-52) % Plt Count 149 (130-400) K/uL BMP 04/25/21 04:37 Sodium 134 L Potassium 4.4 Chloride 102 Carbon Dioxide 27 BUN 40 H Creatinine 1.80 H D Glucose 100 H Calcium 8.4 L (1) STEMI (ST elevation myocardial infarction) Involved coronary artery: unspecified coronary artery Qualified Code(s): I21.3 - ST elevation (STEMI) myocardial infarction of unspecified site (2) Diabetes type 2, controlled Diabetes mellitus assisted insulin use: with assisted use (3) HTN (hypertension) Hypertension type: unspecified Qualified Code(s): I10 - Essential (primary) hypertension
[2021-04-25] MEDS ORDERED: FUROSEMIDE 20 MG in SYRINGE 0 ML IV ONE (15:09)
--- NOTE | 2021-04-25 15:47 | Hospitalist Consultation ---
Date of Consultation April 25, 2021 Assessment & Plan (1) STEMI (ST elevation myocardial infarction): This is patient is a 70-year-old male with no previous cardiac history who presented via EMS from [facility] with anterior ST segment elevation [place]. Underwent cardiac catheterization revealed multivessel disease includin% mid LAD, 70% mid 1st diagonal, 80% mid OM1 and 100% mid RCA Regional wall motion abnormalities noted anteriorly and inferiorly His initial event is likely over 48 hours ago and is currently symptom free Patient is awaiting transport to [facility] for CABG evaluation In the meantime, patient has been started heparin drip along with high-dose statins and metoprolol tartrate 12.5 mg p.o. q.6 hours it will be up titrated as necessary Dr. Bhandari consulted, patient to remain in ICU until a bed is available for transport (2) HTN (hypertension): Lopressor Q6H per cardiology. Home HCTZ, losartan currently held (3) Diabetes type 2, controlled: A1c 9.4 Hold home agents SSI while in-patient BSG AC HS Admitted to ICU awaiting transport Patient seen in collaboration with Dr. Stinson. Please see addendum. Supervising Physician Co-Signing Physician Notes 70yo M with a PMH of HTN, DM II, obesity who presented 04/25 with symptoms of indigestion and found to have anterior STEMI. Underwent cardiac catheterization which revealed multivessel disease includin% mid LAD, 70% mid 1st diagonal, 80% mid OM1 and 100% mid RCA. Patient already accepted to [facility] for CABG evaluation, awaiting bed, to continue with heparin drip, cardiology on board. For his CORTNEY over CKD [November 2020 creatinine was 1.1 per outpatient record], likely secondary to reduced ejection fraction secondary to recent STEMI leading to possibly cardiorenal CORTNEY, will try small dose of Lasix and follow-up with BMP daily, if creatinine still uptrending, will get nephrology on board. Upon examination: GENERAL: Alert and oriented x3. NAD, on RA. HEENT: No pallor, no icterus. Pupils equal, round and reactive to light. Oral mucosa moist. NECK: No JVD, no neck masses. HEART: S1 and S2 heard. Regular rate and rhythm. No murmur, no gallop. Tachycardic. RESPIRATORY SYSTEM: Normal AP diameter. No accessory muscle use. No wheezing, no crackles. ABDOMEN: Soft, bowel sounds present, nontender, no distention. CENTRAL NERVOUS SYSTEM: No facial droop. Speech is clear. Obeys simple commands. Moves extremities. EXTREMITIES: 1+ pedal edema, no erythema seen. I have seen and examined the patient and have discussed the case with the provider above. I agree with the assessment and plan as stated. History of Present Illness Reason for Consultation: awaiting transfer for stemi Requesting Physician: Dr. Bhandari Attending Physician: Vaishnavi Stinson MD History of Present Illness This is a 70yo M with a PMH of HTN, DM II, obesity who presented yesterday with anterior STEMI. Underwent cardiac catheterization which revealed multivessel disease includin% mid LAD, 70% mid 1st diagonal, 80% mid OM1 and 100% mid RCA. Per cardiology, his initial event is likely over 48 hours ago. Patient is awaiting transport to [facility] for CABG evaluation but limited bed availability. In the meantime, patient has been started heparin drip along with high-dose statins and metoprolol tartrate 12.5 mg p.o. q.6 hours. Patient was seen and examined in 111-1. Feeling well at rest. No lightheadedness, chest pain, palpitations or SOB. Awaiting transfer. No other concerns at this time. No fever, chills, headache, N/V/D or dysuria. Allergies Allergy/AdvReac Type Severity Reaction Status Date / Time No Known Allergies Allergy Verified 04/24/21 12:55 Home Medications Medication Instructions Recorded Confirmed Type glipizide 10 mg tablet 10 mg PO BID 04/24/21 04/24/21 History hydrochlorothiazide 12.5 mg capsule 12.5 mg PO DAILY 04/24/21 04/24/21 History insulin degludec 100 unit/mL (3 See Rx Instructions .ROUTE .COMPLEX 04/24/21 04/24/21 History mL) subcutaneous pen (Tresiba FlexTouch U-100 insulin) losartan 100 mg tablet 100 mg PO DAILY 04/24/21 04/24/21 History metformin 500 mg tablet 500 mg PO BID 04/24/21 04/24/21 History simvastatin 40 mg tablet 40 mg PO HS 04/24/21 04/24/21 History Patient History Medical History (Updated 04/25/21 @ 14:21 by Kandice Fong PA-C) Diabetes type 2, controlled HTN (hypertension) STEMI (ST elevation myocardial infarction) Surgical History (Updated 04/25/21 @ 15:46 by Kandice Fong PA-C) History of ankle surgery History of tonsillectomy Family History (Updated 04/25/21 @ 15:47 by Kandice Fong PA-C) Other Diabetes Heart disease Social History Smoking Status: Former smoker Second Hand Exposure: No; Hx Alcohol Use: No Hx Substance Use: No Preferred Language: Lao Communication Ability: Effective Emotional Support Teacher Required: No Beliefs That Will Affect Care: None Current Living Situation: Spouse Feels Safe at Home: Yes Assistive Devices: None Review of Systems Review of Systems: At least ten systems reviewed and negative except as noted in the HPI. Physical Exam Physical Exam: Gen: WD/WN, NAD, resting comfortably, obese, A&Ox3 HEENT: Normocephalic, atraumatic, conjunctivae moist, sclerae anicteric, mucous membranes moist Lung: Clear to Auscultation bilaterally, no wheezes/rales/rhonchi Heart: Regular rate, regular rhythm, no murmurs, rubs, or gallops Abdomen: Soft, NT, ND +BS x 4 Extremities: no edema Skin: Warm, no rash Results & Data Results & Data ([facility]) Vital Signs (Past 12 Hours) Vital Signs Temp Pulse Pulse Resp BP BP Pulse Ox 04/25/21 12:00 37.0 C 80 14 138/72 99 04/25/21 08:00 88 04/25/21 06:00 83 17 118/74 94 04/25/21 05:00 85 19 103/52 L 96 04/25/21 04:00 37.2 C 78 17 99/65 L 94 Laboratory Results Short CBC 04/25/21 Range/Units 04:37 WBC 8.26 (4.8-10.8) K/uL Hgb 10.8 L (14.0-18.0) g/dL Hct 33.8 L (42-52) % Plt Count 149 (130-400) K/uL BMP 04/25/21 04:37 Sodium 134 L Potassium 4.4 Chloride 102 Carbon Dioxide 27 BUN 40 H Creatinine 1.80 H D Glucose 100 H Calcium 8.4 L (1) STEMI (ST elevation myocardial infarction) Involved coronary artery: unspecified coronary artery Qualified Code(s): I21.3 - ST elevation (STEMI) myocardial infarction of unspecified site (2) Diabetes type 2, controlled Diabetes mellitus care home insulin use: with intermediate project manager use (3) HTN (hypertension) Hypertension type: unspecified Qualified Code(s): I10 - Essential (primary) hypertension
[2021-04-25 20:16] LABS: Partial Thromboplastin Ratio 1.6; Partial Thromboplastin Time 42.3 Seconds (21.0-31.0)
--- NOTE | 2021-04-26 09:59 | Discharge Summary ---
Date of Service April 26, 2021 Admission HPI Per Admitting Provider 2 day hsitory of , now presenting with ant STEMI now chest pain free Admission Exam Per Admitting Provider Constitutional: WD/WN, vitals as above Respiratory: normal respiratory effort, lungs clear to auscultation normal respiratory effort Auscultation: lungs clear to auscultation bilaterally Cardiovascular: RRR, no murmur, no edema Principal Diagnosis STEMI Discharge Exam Gen: WD/WN, NAD, resting comfortably, obese, A&Ox3 HEENT: Normocephalic, atraumatic, conjunctivae moist, sclerae anicteric, mucous membranes moist Lung: Clear to Auscultation bilaterally, no wheezes/rales/rhonchi Heart: Regular rate, regular rhythm, no murmurs, rubs, or gallops Abdomen: Soft, NT, ND +BS x 4 Extremities: no edema Skin: Warm, no rash Discharge Data Allergies Allergy/AdvReac Type Severity Reaction Status Date / Time No Known Allergies Allergy Verified 04/24/21 12:55 Consultations 04/24/21 12:44 Consult Isotope Technician Routine 04/25/21 10:52 Consult Hospitalist Routine Procedures Performed Operation Date: 04/24/21 12:00 Actual Procedures s Cineradiography w/Routine Exam - Gisel Conte MD p Cath, Left with Cors and Vent - Gisel Conte MD Ordered Studies 04/24/21 11:45 CL Cath Imgs for PACS use only Stat 04/24/21 11:49 CL Cath Imgs for PACS use only Stat Diabetes Follow up Diabetes Follow-up Needed for HgbA1c >9% Hospital Course (1) STEMI (ST elevation myocardial infarction): (2) HTN (hypertension): (3) Diabetes type 2, controlled: This is a 70yo M with a PMH of HTN, DM II, obesity who presented 04/25 with symptoms of indigestion and found to have anterior STEMI. Underwent cardiac catheterization revealed multivessel disease includin% mid LAD, 70% mid 1st diagonal, 80% mid OM1 and 100% mid RCA. Regional wall motion abnormalities noted anteriorly and inferiorly. His initial event is likely over 48 hours ago and is currently symptom free. Patient is awaiting transport [place] [facility]. In the meantime, patient has been started heparin drip along with high-dose statins and metoprolol tartrate 12.5 mg p.o. q.6 hours it will be up titrated as necessary. Dr. Bhandari consulted. Patient remained in ICU until a bed available in Echo and patient was transferred. Patient hemodynamically stable for discharge. Total Time Total Time Spent Total Time Spent (In Minutes): 25 Discharge Plan Discharge Items Patient Disposition: Transfer Acute Care Hospital Reason For Visit: S/P HEART CATH Discharge Diagnosis: STEMI, needs evaluation for CABG Activity: As commented below Activity Comment: transfer to Echo via ground Non-emergency contact: Primary Care Provider and Day Care Aide Call non-emergency contact if: you have any medication questions, your symptoms worsen and your pain is not controlled Follow-up/Referrals: Delmis Oakes MD [Primary Care Provider] - Diet: Carb Consistent or DM2 and Heart Healthy Addtl Attending Provider Instructions: This is patient is a 70-year-old male with no previous cardiac history who presented via EMS from [facility] with anterior ST segment elevation [place]. Underwent cardiac catheterization revealed multivessel disease includin% mid LAD, 70% mid 1st diagonal, 80% mid OM1 and 100% mid RCA. Regional wall motion abnormalities noted anteriorly and inferiorly. His initial event is likely over 48 hours ago and is currently symptom free. Patient is awaiting transport [place] [facility] [place]. In the meantime, patient has been started heparin drip along with high-dose statins and metoprolol tartrate 12.5 mg p.o. q.6 hours it will be up titrated as necessary Dr. Bhandari consulted, patient to remain in ICU until a bed is available for transport Pending Studies at Discharge: No Stand-Alone Forms: My [facility] Medications and DC Order Prescriptions: New atorvastatin 80 mg tablet 80 mg PO DAILY Qty: 30 RF: 0 metoprolol tartrate 25 mg tablet 12.5 mg PO Q6H Qty: 4 RF: 0 Continued glipizide 10 mg Tablet 10 mg PO BID RF: 0 metformin 500 mg Tablet 500 mg PO BID RF: 0 simvastatin 40 mg Tablet 40 mg PO HS RF: 0 hydrochlorothiazide 12.5 mg Capsule 12.5 mg PO DAILY RF: 0 losartan 100 mg Tablet 100 mg PO DAILY RF: 0 Tresiba FlexTouch U-100 100 unit/mL (3 mL) Insulin Pen See Rx Instructions .ROUTE .COMPLEX RF: 0 Discharge Orders: Discharge Order (Routine); Ordered 04/25/21 Ordered By: Josh Carreon Admission Data Admit Date/Time: 04/24/21 12:39 Attending Provider: Vaishnavi Stinson Admit Provider: Gisel Conte Primary Care Provider: Delmis Oakes Other Providers: Vargas Lynch Other Interventions: Discharge Summary Assessment (RN) Last Done: 04/25/21 22:35 Supervising Physician Co-Signing Physician Notes 70yo M with a PMH of HTN, DM II, obesity who presented 04/25 with symptoms of indigestion and found to have anterior STEMI. Underwent cardiac catheterization which revealed multivessel disease includin% mid LAD, 70% mid 1st diagonal, 80% mid OM1 and 100% mid RCA. Patient already accepted to [facility] for CABG evaluation, on heparin drip while inpatient, cardiology on board. For his CORTNEY over CKD [November 2020 creatinine was 1.1 per outpatient record], likely secondary to reduced ejection fraction secondary to recent STEMI leading to possibly cardiorenal CORTNEY, received small dose of Lasix and plan was to follow-up with BMP daily. Patient got bed to Echo yesterday overnight and was transferred. I have seen and examined the patient yesterday and have discussed the case with the provider above. I agree with the assessment and plan as stated.
== END 2021-04-25 22:41 | disposition short-term general hospital (02) | DRG 281 ==
LOC: ED 11:53 → 1E 12:10 → CC 12:10 → SUATTDRO 12:39 → 1E 12:39